=== PATIENT | male | born 1985 | race Caucasian/White ===

== ENCOUNTER 2022-07-20 08:18 | Emergency (ER) | payer OTHER, SELFPAY ==
--- NOTE | ~2022-07-20 | XR_ITS ---
EXAMINATION: XR chest 2V DATE: 07/20/2022 08:58 INDICATION: Chest pain. TECHNIQUE: Frontal and lateral views of the chest were obtained. COMPARISON: Chest 2 views 08/13/2015 FINDINGS: There is no pneumonia, pleural effusion, or pneumothorax. The heart size is normal. IMPRESSION: 1. No acute cardiopulmonary disease. Reviewed, dictated and finalized at location A. 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
--- NOTE | 2022-07-20 08:29 | ECG_ITS ---
Measurements Intervals [place] Rate: 106 P: 53 TN: 148 QRS: 36 QRSD: 96 T: 44 QT: 320 QTc: 425 Interpretive Statements SINUS TACHYCARDIA BASELINE ARTIFACT- I, II, AVR, AVL, AVF ABNORMAL ECG NO PREVIOUS ECG AVAILABLE FOR COMPARISON Electronically Signed On 07-20-2022 15:17:40 DRIVER TRAINER by Jim Palacios D.O.
[2022-07-20 08:30] VITALS: BP 131/93; PULSE 100; RESP 16; TEMP 36.4; O2SAT 97
[2022-07-20 08:56] LABS: Basophils Percent Auto 0.3 % (0.2-1.2); Eosinophils Absolute Auto 0.2 K/mm3 (0-0.3); Eosinophils Percent Auto 1.5 % (0-4.4); Hematocrit 47.1 % (42.0-52.0); Hemoglobin 16.4 g/dL (14.0-18.0); Immature Granulocyte Absolute 0.08 K/mm3 (0.00-0.031); Immature Granulocyte Percent A 0.7 % (0-0.5); Lymphocytes Absolute Auto 1.62 K/mm3 (0.9-3.2); Lymphocytes Percent Auto 13.9 % (18.3-44.2); Mean Corpuscular HGB Conc 34.8 g/dl (32-36); Mean Corpuscular Hemoglobin 29.8 pg (26-34); Mean Corpuscular Volume 85.5 fl (80-100); Mean Platelet Volume 10.5 fl (7.4-10.4); Monocytes Absolute Auto 0.9 K/mm3 (0.1-0.6); Monocytes Percent Auto 7.4 % (2.6-8.5); Neutrophils Absolute Auto 8.9 K/mm3 (1.3-6.7); Neutrophils Percent Auto 76.2 % (45.5-73.1); Platelet Count Result 268 k/mm3 (150-375); Red Blood Count 5.51 M/mm3 (4.6-6.20); Red Cell Distribution Width 11.8 % (11.5-14.5); White Blood Count 11.7 K/mm3 (4.5-10.0)
[2022-07-20 09:00] LABS: INR 1.1; Partial Thromboplastin Time 29.5 SECONDS (22.3-36.8); Prothrombin Time 13.3 Seconds (11.1-14.7)
[2022-07-20 09:05] LABS: Alanine Aminotransferase 37 U/L (6-50); Albumin Level 4.7 g/dL (3.5-5.1); Alkaline Phosphatase 64 U/L (38-126); Anion Gap 9 mmol/L (8-16); Aspartate Amino Transferase 37 U/L (17-59); Bilirubin,Total 1.3 mg/dL (0.2-1.3); Blood Urea Nitrogen 19 mg/dL (9-20); Carbon Dioxide 28 mmol/L (22-30); Chloride 96 mmol/L (98-107); Estimated CRCL calculation 100 ml/min; Estimated Glomerular Filt Rate > 60; Glucose 91 mg/dL (65-110); Lipase 96 U/L (23-300); Potassium 3.6 mmol/L (3.4-5.0); Sodium 133 mmol/L (137-145)
[2022-07-20 09:13] LABS: Troponin I < 0.012 ng/mL (0.000-0.034)
--- NOTE | 2022-07-20 09:57 | ED.CHESTPAIN ---
HPI - Chest Pain General Chief Complaint: Chest Pain Stated Complaint: Chest pain Time Seen by Provider: 07/20/22 09:15 History of Present Illness HPI narrative: 36-year-old male no medical problems who is well-appearing and nontoxic presents to the emergency room for evaluation of chest pain that has been present for 4 weeks. States pain is located in bilateral pectoral muscles, and is worse with movements of his arm. Denies any shortness of breath or difficulty breathing. States that pain began soon after doing a crab walk while at [employer] function. States has tried Tylenol and ibuprofen intermittently with no relief of pain. Denies any radiating pain, nausea or vomiting, dizziness, or syncopal episodes. Denies fever. Review of Systems Review of Systems: CONSTITUTIONAL: Denies fever, chills, or sweats. EYES: Denies visual changes, redness, or discharge. ENT: Denies rhinorrhea, congestion, sore throat, or otalgia. CARDIOVASCULAR: Denies chest pain, palpitations, or edema. RESPIRATORY: Denies cough or dyspnea. GASTROINTESTINAL: Denies abdominal pain, nausea, vomiting, or diarrhea. GENITOURINARY: Denies dysuria or hematuria. SKIN: Denies rash or itching. MUSCULOSKELETAL: Denies back pain, joint pain, or myalgia. NEUROLOGIC: Denies headache, numbness, dizziness, or weakness. PSYCHIATRIC: Denies anxiety or depression. Exam Narrative: GENERAL: Well-appearing, well-nourished, no physical limitations, and in no acute distress. HEAD: Normocephalic, atraumatic. EYES: Conjunctivae normal, PERRLA and EOMI. CHEST: Clear to auscultation. No respiratory distress. No wheezes rales or rhonchi. Tenderness over right anterior and left anterior chest wall HEART: Regular rate and rhythm. No murmur heard. Normal peripheral pulses. ABDOMEN: Soft, nontender, nondistended, normal active bowel sounds. EXTREMITIES: Normal range of motion. No edema. No clubbing or cyanosis SKIN: Warm, dry, no rash. No noted wounds NEURO: No focal deficits. Alert and oriented x3. MAEW. CN's II-XI intact bilaterally, normal gait PSYCH: Cooperative. Normal mood and affect. Course Vital Signs Vital signs: Vital Signs Temperature 36.4 C 07/20/22 08:30 Pulse Rate 100 07/20/22 08:30 Respiratory Rate 16 07/20/22 08:30 Blood Pressure 131/93 H 07/20/22 08:30 Pulse Oximetry 97 07/20/22 08:30 Temperature 36.4 C 07/20/22 08:30 Pulse Rate 100 07/20/22 08:30 Respiratory Rate 16 07/20/22 08:30 Blood Pressure 131/93 H 07/20/22 08:30 Pulse Oximetry 97 07/20/22 08:30 MDM - Chest Pain MDM Narrative Medical decision making narrative: 36-year-old male presented to the emergency room for evaluation of reproducible chest wall pain for 4 weeks. Having taken Tylenol and ibuprofen with no relief of symptoms. Exam showed no evidence of volume overload. EKG showed no signs of active ischemia. Single Trope was negative. PERC score was a 0. Chest x-ray showed no acute cardiopulmonary disease. Heart score was a 0. Patient likely experiencing chest wall/costochondral pain. Lab Data 07/20/22 08:33 07/20/22 08:33 Labs: Lab Results 07/20/22 07/20/22 07/20/22 Range/Units 08:33 08:33 08:33 WBC 11.7 H (4.5-10.0) K/mm3 RBC 5.51 (4.6-6.20) M/mm3 Hgb 16.4 (14.0-18.0) g/dL Hct 47.1 (42.0-52.0) % MCV 85.5 (80-100) fl MCH 29.8 (26-34) pg MCHC 34.8 (32-36) g/dl RDW 11.8 (11.5-14.5) % Plt Count 268 (150-375) k/mm3 MPV 10.5 H (7.4-10.4) fl Immature Gran % (Auto) 0.7 H (0-0.5) % Neut % (Auto) 76.2 H (45.5-73.1) % Lymph % (Auto) 13.9 L (18.3-44.2) % [place] % (Auto) 7.4 (2.6-8.5) % Eos % (Auto) 1.5 (0-4.4) % Baso % (Auto) 0.3 (0.2-1.2) % Lymph # (Auto) 1.62 (0.9-3.2) K/mm3 [place] # (Auto) 0.9 H (0.1-0.6) K/mm3 Eos # (Auto) 0.2 (0-0.3) K/mm3 Baso # (Auto) 0.0 (0.0-0.1) K/mm3 Abs Immat Gran (auto) 0.08 H (0.00-0.031) K/mm3 Absolut
== END 2022-07-20 10:10 | disposition home or self-care (01) ==
LOC: ANHED 10:06
PROVIDERS: Emergency Medicine; Emergency Provider Nurse Practitioner Family
DX: M94.0 Chondrocostal junction syndrome [Tietze] (principal); R07.89 Other chest pain
CPT/HCPCS: 36415; 71046; 80053; 83690; 84484; 85025; 85610; 85730; 93005; 99284